=== PATIENT | male | born 2000 | race Two or more races ===

== ENCOUNTER 2024-02-08 08:29 | Emergency (ER) | payer MEDICAID, OTHER ==
[~2024-02-08] VITALS: Ht 167.6 cm; Wt 72.0 kg
[2024-02-08] MEDS ORDERED: CEPH500C PO (10:52)
[2024-02-08 11:08] VITALS: BP 123/73; PULSE 63; RESP 18; TEMP 98; O2SAT 98
== END 2024-02-08 11:09 | disposition home or self-care (01) ==
LOC: EDBD 08:29 → ER 08:29
DX: S01.111A Laceration without foreign body of right eyelid and periocular area, initial encounter (principal); W22.8XXA Striking against or struck by other objects, initial encounter; Y93.89 Activity, other specified; Y92.89 Other specified places as the place of occurrence of the external cause; Y99.8 Other external cause status
CPT/HCPCS: 12011; 99283; J7030